=== PATIENT | male | born 1955 | race Caucasian/White ===

== ENCOUNTER 2020-02-06 12:54 | Inpatient (IN) | payer MEDICARE, OTHER ==
--- NOTE | 2020-02-06 13:18 | ED ---
General Adult HPI - General Chief complaint: Abdominal Pain Stated complaint: pancreatitis Time Seen by Provider: 02/06/20 12:55 Source: EMS Mode of arrival: EMS Limitations: altered mental status - History of Present Illness Initial comments: This is a 64-year-old male with a history of cerebral palsy, epilepsy who presents emergent department from [place] for pancreatitis and possible aspiration pneumonia. Per the caregiver the patient has been not acting himself over the last couple of days. He's been moaning more and not eating. She states that he's been putting food into his mouth however not swallowing. He has not been drinking as well. They've noticed decreased urine output. There was concern that the patient may have urinary retention so they did place a Martínez at that time however has still noticed decreased urine output. They stated his baseline he typically will look at you and somewhat interact however over the last couple of days he has not been as interactive as normal. He is nonverbal at baseline. He went to [place] where he had computed tomography scan of his head chest abdomen and pelvis. CT of the head showed right-sided encephalomalacia from previous stroke which resulted in left-sided weakness. CT of the chest showed possible aspiration pneumonia no PE. The patient was started on Zosyn at OSH. CT the abdomen showed concerns for pancreatitis and findings of cholecystectomy. When I asked the caregiver about previous surgery she was not aware of cholecystectomy. Labs were Significant for an elevated lipase. Rapid Covid was negative at outside facility. Otherwise is been no fevers at home. No nausea or vomiting. The caregiver did notice an episode of diarrhea. The patient does not have a history of drinking or gallstones according to the caregiver. The patient is not getting any of his medications today as well. There is no other acute complaints. - Related Data Allergies Allergy/AdvReac Type Severity Reaction Status Date / Time wool Allergy Rash/Hives Verified 02/06/20 13:17 Review of Systems ROS Statement: Those systems with pertinent positive or pertinent negative responses have been documented in the HPI. ROS Other: All systems not noted in ROS Statement are negative. Past Medical History Additional Past Medical History / Comment(s): Cerebral bypalsy, epilipsy Past Surgical History: Cholecystectomy Past Psychological History: Bipolar Smoking Status: Never smoker Past Alcohol Use History: None Reported Past Drug Use History: None Reported General Exam - General Exam Comments Initial Comments: Constitutional: The patient is sleeping. He is consistently moaning and has loud upper respiratory noises. Does not appear to be in any distress Head: Normocephalic atraumatic Eyes: no conjunctival injection No scleral icterus patient's pupils are 4 mm and reactive bilaterally Neck: No JVD Supple Heart: Regular rate rhythm normal S1-S2 no murmurs Lungs: Transmitted upper airway sounds No wheezing No rales, no evidence for respiratory distress Abdomen: Soft the abdomen is somewhat protuberant and seems to be tender generally because the patient does grunt loudly Extremities: Non edematous DP pulses intact Radial pulses intact Neuro: She is sleeping, patient has chronic contractures to the left upper and lower extremities. Chronic weakness patient is somnolent however seems to be in no distress. Ground in to palpation of his abdomen. Does not respond to voice Psych: Appropriate mood and affect Limitations: altered mental status Course Vital Signs 02/06/20 12:56 Temperature 95.6 F L Pulse Rate 56 L Respiratory 18 Rate Blood Pressure 104/61 O2 Sat by Pulse 98 Oximetry Medical Decision Making - Medical Decision Making Is a 64-year-old male who presents emergency department from [facility] for decreased oral intake, dehydration, pink her toys, and question of aspiration pneumonia. The patient on arrival had stable vital signs. He did seem somewhat sleepy however would open his eyes and groan to pain and stimulation. Blood work was reviewed from [facility] revealing a high lipase. CT of the abdomen showed pancreatic inflammation. Possible post cholecystectomy changes. CT of the chest revealed question low right-sided inf iltrate. The patient was given Zosyn at [facility]. I will continue him on this here. The patient was started on IV fluids. Labwork was repeated. Spoke with Dr. Chin and the patient will be admitted for gastroenterology consultation. The patient was Covid negative at [place]. Disposition Clinical Impression: Pancreatitis, Dehydration Disposition: ADMITTED IP TO THIS HOSP Condition: Fair Referrals: None,Stated [REFERRING] - 1-2 days Decision to Admit Reason: Admit from EC
[2020-02-06] MEDS: SODIUM CHLORIDE 0.9% 1,000 ML IV SCH ×2 (13:32→20:14)
[2020-02-06] MEDS ORDERED: NALOXONE 0.4 MG/ML 1 ML VIAL IV PRN (13:34)
[2020-02-06] MEDS ORDERED: ONDANSETRON 4 MG/2 ML VIAL IVP PRN (13:34)
[2020-02-06 13:54] LABS: Anisocytosis Slight; Basophils % (A) 0 %; Eosinophils # (A) 0.1 k/uL (0-0.7); Eosinophils % (A) 1 %; HCT 39.4 % (39.0-53.0); HGB 12.5 gm/dL (13.0-17.5); Lymphocytes # (A) 0.4 k/uL (1.0-4.8); Lymphocytes % (A) 3 %; MCH 28.6 pg (25.0-35.0); MCHC 31.8 g/dL (31.0-37.0); MCV 89.9 fL (80.0-100.0); Mean Platelet Volume 10.7; Monocytes # (A) 0.5 k/uL (0-1.0); Monocytes % (A) 5 %; Neutrophils # (A) 9.8 k/uL (1.3-7.7); Neutrophils % (A) 89 %; Platelet Count 143 k/uL (150-450); RBC 4.38 m/uL (4.30-5.90); RDW 17.1 % (11.5-15.5)
[2020-02-06 14:03] LABS: Poikilocytosis (M) Present; Target Cells Present
[2020-02-06 14:36] LABS: ALT 48 U/L (4-49); AST 57 U/L (17-59); African American GFR (CKD) >90 (>60 ml/min/1.73 sqM); Albumin 3.4 g/dL (3.5-5.0); Alkaline Phosphatase 76 U/L (38-126); Anion Gap 5 mmol/L; Blood Urea Nitrogen 17 mg/dL (9-20); Calcium 9.8 mg/dL (8.4-10.2); Carbon Dioxide 25 mmol/L (22-30); Chloride 107 mmol/L (98-107); Glucose 88 mg/dL (74-99); Magnesium 1.9 mg/dL (1.6-2.3); Non-African American GFR(CKD) >90 (>60 ml/min/1.73 sqM); Potassium 4.3 mmol/L (3.5-5.1); Sodium 137 mmol/L (137-145); Total Bilirubin 0.3 mg/dL (0.2-1.3); Total Protein 6.1 g/dL (6.3-8.2)
--- NOTE | 2020-02-06 15:14 | XR ---
EXAMINATION TYPE: XR chest 1V portable DATE OF EXAM: 02/06/2020 COMPARISON: NONE HISTORY: Altered mental status. TECHNIQUE: Single view FINDINGS: There is increased density right lung base consistent with airspace consolidation. Heart is deviated slightly to the right side. Left lung is fairly clear. There is no gross heart failure. IMPRESSION: Right lower lobe pneumonia and atelectasis. No gross heart failure. This is probably wors e than the CT scan today at 8:30 AM.
[2020-02-06 15:17] LABS: Lipase 5974 U/L (23-300)
--- NOTE | 2020-02-06 15:19 | US ---
EXAMINATION TYPE: US abdomen limited DATE OF EXAM: 02/06/2020 COMPARISON: CT CLINICAL HISTORY: Pancreatitis. EXAM MEASUREMENTS: Liver Length: 15.4 cm Gallbladder Wall: Surgically absent cm CBD: not seen Right Kidney: 9.5 x 4.5 x 5.4 cm Technically difficult study due to extensive midline bowel gas. Pancreas: Obscured by bowel gas Liver: limited visualization to intercostal window, visualized portions wnl Gallbladder: Surgically absent CBD: not seen Right Kidney: No hydronephrosis or masses seen IMPRESSION: There is cholecystectomy. Intrahepatic bile ducts are not dilated. Common bile duct is not seen. Ther e is no ascites. No focal liver defect.
[2020-02-06 17:32] LABS: Appearance,Urine Cloudy (Clear); Bacteria,Urine Rare /hpf; Bilirubin,Urine Negative (Negative); Blood,Urine Moderate (Negative); Color,Urine Yellow; Glucose,Urine (UA) Negative (Negative); Ketones,Urine Negative (Negative); Leukocyte Esterase,Urine Moderate (Negative); Mucus,Urine Occasional /hpf; Nitrite,Urine Negative (Negative); PH, Urine 5.5 (5.0-8.0); Protein,Urine 1+ (Negative); RBC,Urine 174 /hpf (0-5); Specific Gravity,Urine 1.032 (1.001-1.035); Squamous Epithelial Cell,Urine 4 /hpf (0-4); Urobilinogen,Urine <2.0 mg/dL (<2.0); WBC,Urine 47 /hpf (0-5)
[2020-02-06] MEDS: PIPERACILLIN-TAZOBACTAM 3.375 GM in SODIUM CHLORIDE 0.9% 100 ML IVPB SCH (17:41)
--- NOTE | 2020-02-06 23:00 | P.HPIM ---
History of Present Illness H&P Date: 02/06/20 Chief Complaint: Poor by mouth intake not eating well This is a 64-year-old male with a history of cerebral palsy, epilepsy who presents emergent department from [place] for pancreatitis and possible aspiration pneumonia. Per the caregiver the patient has been not acting himself over the last couple of days. He's been moaning more and not eating. Patient has been been putting food into his mouth however not swallowing. He has not been drinking as well. Caregivers have noticed decreased urine output. There was concern that the patient may have urinary retention so they did place a Martínez at that time however has still noticed decreased urine output. They st ated his baseline he typically will look at you and somewhat interact however over the last couple of days he has not been as interactive as normal. He is nonverbal at baseline. He went to [place] where he had computed tomography scan of his head chest abdomen and pelvis. CT of the head showed right-sided encephalomalacia from previous stroke which resulted in left-sided weakness. CT of the chest showed possible aspiration pneumonia no PE. The patient was started on Zosyn. CT the abdomen showed concerns for pancreatitis and findings of cholecystectomy. When I asked the caregiver about previous surgery she was not aware of cholecystectomy. Labs were Significant for an elevated lipase. Rapid Covid was negative at outside facility. Otherwise is been no fevers at home. No nausea or vomiting. The caregiver did notice an episode of diarrhea. The patient does not have a history of drinking or gallstones according to the caregiver. The patient is not getting any of his medications today as well. There is no other acute complaints. Review of Systems ROS unobtainable: due to mental status Past Medical History Past Medical History: Prostate Disorder Additional Past Medical History / Comment(s): Cerebral palsy, epilipsy, uti's, History of Any Multi-Drug Resistant Organisms: None Reported Past Surgical History: Cholecystectomy Past Anesthesia/Blood Transfusion Reactions: No Reported Reaction Smoking Status: Never smoker - Past Family History Father History Unknown: Yes Mother History Unknown: Yes Medications and Allergies Home Medications Medication Instructions Recorded Confirmed Type Aspirin EC [Ecotrin] 325 mg PO DAILY@0700 02/06/20 02/06/20 History Chlorhexidine Gluconate [Periogard] 15 ml PO BID 02/06/20 02/06/20 History FLUoxetine HCL [PROzac] 10 mg PO DAILY@0700 02/06/20 02/06/20 History Fenofibrate,Micronized 67 mg PO DAILY@1600 02/06/20 02/06/20 History [Fenofibrate] Finasteride [Proscar] 5 mg PO DAILY@0700 02/06/20 02/06/20 History Ketoconazole [Nizoral A-D] 5 ml TOPICAL DAILY 02/06/20 02/06/20 History LORazepam [Ativan] 0.5 mg PO BID 02/06/20 02/06/20 History LORazepam [Ativan] 0.5 mg PO DAILY PRN 02/06/20 02/06/20 History Multivitamins, Thera [Multivitamin 1 tab PO DAILY@0700 02/06/20 02/06/20 History (formulary)] OLANZapine 20 mg PO HS@2100 02/06/20 02/06/20 History OXcarbazepine 600 mg PO DAILY@0700 02/06/20 02/06/20 History OXcarbazepine [Trileptal] 150 mg PO HS@2100 02/06/20 02/06/20 History OXcarbazepine [Trileptal] 300 mg PO HS@2100 02/06/20 02/06/20 History Polyethylene Glycol 3350 [Miralax] 17 gm PO DAILY@1600 PRN 02/06/20 02/06/20 History Tamsulosin HCl [Flomax] 0.4 mg PO DAILY@1600 02/06/20 02/06/20 History Allergies Allergy/AdvReac Type Severity Reaction Status Date / Time wool Allergy Rash/Hives Verified 02/06/20 13:46 Physical Exam Vitals: Vital Signs Temp Pulse Pulse Resp BP BP Pulse Ox 02/06/20 16:34 98.4 F 58 L 19 135/73 96 02/06/20 15:15 95.6 F L 54 L 18 110/70 95 02/06/20 15:12 54 L 18 110/70 95 02/06/20 13:41 54 L 18 112/68 95 02/06/20 12:56 95.6 F L 56 L 18 104/61 98 Intake and Output 02/06/20 02/06/20 02/06/20 06:59 14:59 22:59 Output Total 325 Balance -325 Output: Urine 325 Uretheral (Martínez) 75 Other: Weight 79.379 kg 79.379 kg - Constitutional General appearance: average body habitus, disheveled - EENT Ears: bilateral: normal - Neck Neck: normal ROM Carotids: bilateral: upstroke normal - Respiratory Respiratory: bilateral: diminished - Cardiovascular Rhythm: regular Heart sounds: normal: S1, S2 - Gastrointestinal General gastrointestinal: decreased bowel sounds - Neurologic Nonverbal and noncommunicative Results CBC & Chem 7: 02/06/20 13:40 02/06/20 13:59 Labs: Abnormal Lab Results - Last 24 Hours (Table) 02/06/20 02/06/20 02/06/20 Range/Units 13:40 13:59 17:00 WBC 11.0 H (3.8-10.6) k/uL Hgb 12.5 L (13.0-17.5) gm/dL RDW 17.1 H (11.5-15.5) % Plt Count 143 L (150-450) k/uL Neutrophils # 9.8 H (1.3-7.7) k/uL Lymphocytes # 0.4 L (1.0-4.8) k/uL Total Protein 6.1 L (6.3-8.2) g/dL Albumin 3.4 L (3.5-5.0) g/dL Lipase 5974 H (23-300) U/L Urine Protein 1+ H (Negative) Urine Blood Moderate H (Negative) Ur Leukocyte Esterase Moderate H (Negative) Urine RBC 174 H (0-5) /hpf Urine WBC 47 H (0-5) /hpf Urine Bacteria Rare H (None) /hpf Urine Mucus Occasional H (None) /hpf Microbiology - Last 24 Hours (Table) 02/06/20 17:00 Urine Culture - Preliminary Urine,Catheterized Chest x-ray: report reviewed (Right lower lobe pneumonia, computed tomography scan reports of chest abdominal and pelvis and head reviewed done at [facility]), image reviewed Thrombosis Risk Factor Assmnt - Choose All That Apply Any of the Below Risk Factors Present?: Yes Each Factor Represents 1 point: Medical pt on bed rest, Obesity (BMI >25), Serious lung disease incl. pneumonia (< 1month), Swollen legs (current) Each Risk Factor Represents 2 Points: Age 61-74 years Thrombosis Risk Factor Assessment Total Risk Factor Score: 6 Thrombosis Risk Factor Assessment Level: High Risk Assessment and Plan Assessment: Acute pancreatitis Right-sided aspiration pneumonia Advanced cerebral palsy History of epilepsy Plan: Gentle rehydration Repeat labs tomorrow GI consult Patient cannot take his pills so will make him nothing by mouth for now IV Zosyn Time with Patient: Greater than 30
[2020-02-07] MEDS: SODIUM CHLORIDE 0.9% 1,000 ML IV SCH ×4 (00:27→16:38)
[2020-02-07] MEDS: PIPERACILLIN-TAZOBACTAM 3.375 GM in SODIUM CHLORIDE 0.9% 100 ML IVPB SCH ×4 (00:27→23:03)
[2020-02-07 08:14] LABS: Anisocytosis Slight; Basophils % (A) 0 %; Eosinophils # (A) 0.1 k/uL (0-0.7); Eosinophils % (A) 1 %; HCT 39.1 % (39.0-53.0); HGB 12.3 gm/dL (13.0-17.5); Hypochromasia Slight; Lymphocytes # (A) 0.7 k/uL (1.0-4.8); Lymphocytes % (A) 12 %; MCH 28.8 pg (25.0-35.0); MCHC 31.4 g/dL (31.0-37.0); MCV 91.7 fL (80.0-100.0); Mean Platelet Volume 9.9; Monocytes # (A) 0.4 k/uL (0-1.0); Monocytes % (A) 7 %; Neutrophils # (A) 4.7 k/uL (1.3-7.7); Neutrophils % (A) 77 %; Platelet Count 141 k/uL (150-450); RBC 4.27 m/uL (4.30-5.90); WBC 6.1 k/uL (3.8-10.6)
[2020-02-07 12:13] LABS: African American GFR (CKD) 115.6 (60.0-200.0); Anion Gap 4.3 mmol/L (4.00-12.00); Calcium 9.3 mg/dL (8.7-10.3); Carbon Dioxide 23.7 mmol/L (21.6-31.8); Non-African American GFR(CKD) 99.7 (60.0-200.0); Potassium 4.5 mmol/L (3.5-5.5)
--- NOTE | 2020-02-07 13:32 | P.PN ---
Subjective Progress Note Date: 02/07/20 Principal diagnosis: Acute pancreatitis Right-sided aspiration pneumonia Advanced cerebral palsy History of epilepsy 02/07/2020, patient seen eval examined during the rounds labs reviewed medications reviewed, respiratory status remains stable on supplemental oxygen saturation is 96%, patient remains afebrile, amylase lipase is noted to be down 899 and 466, GI consultation pending, she remains nothing by mouth, This is a 64-year-old male with a history of cerebral palsy, epilepsy who presents emergent department from [place] for pancreatitis and possible aspiration pneumonia. Per the caregiver the patient has been not acting himself over the last couple of days. He's been moaning more and not eating. Patient has been been putting food into his mouth however not swallowing. He has not been drinking as well. Caregivers have noticed decreased urine output. There was concern that the patient may have urinary retention so they did place a Martínez at that time however has still noticed decreased urine output. They stated his baseline he typically will look at you and somewhat interact however over the last couple of days he has not been as interactive as normal. He is nonverbal at baseline. He went to [place] where he had computed tomography scan of his head chest abdomen and pelvis. CT of the head showed right-sided encephalomalacia from previous stroke which resulted in left-sided weakness. CT of the chest showed possible aspiration pneumonia no PE. The patient was started on Zosyn. CT the abdomen showed concerns for pancreatitis and findings of cholecystectomy. When I asked the caregiver about previous surgery she was not aware of cholecystectomy. Labs were Significant for an elevated lipase. Rapid Covid was negative at outside facility. Otherwise is been no fevers at home. No nausea or vomiting. The caregiver did notice an episode of diarrhea. The patient does not have a history of drinking or gallstones according to the caregiver. The patient is not getting any of his medications today as well. There is no other acute complaints. Objective - Vital Signs Vital signs: Vital Signs Temp 96.2 F L 02/07/20 08:00 Pulse 81 02/07/20 08:00 Resp 24 02/07/20 08:00 BP 152/84 02/07/20 08:00 Pulse Ox 96 02/07/20 08:00 Intake & Output 02/06/20 02/07/20 02/07/20 18:59 06:59 18:59 Output Total 325 350 610 Balance -325 -350 -610 Weight 79.379 kg Output: Urine 325 350 610 Uretheral (Martínez) 75 Other: Voiding Method Indwelling Catheter - Exam - Constitutional General appearance: average body habitus, disheveled - EENT Ears: bilateral: normal - Neck Neck: normal ROM Carotids: bilateral: upstroke normal - Respiratory Respiratory: bilateral: diminished - Cardiovascular Rhythm: regular Heart sounds: normal: S1, S2 - Gastrointestinal General gastrointestinal: decreased bowel sounds - Neurologic Nonverbal and noncommunicative - Labs CBC & Chem 7: 02/07/20 07:01 02/07/20 07:01 Labs: Abnormal Lab Results - Last 24 Hours (Table) 02/06/20 02/06/20 02/06/20 Range/Units 13:40 13:59 17:00 WBC 11.0 H (3.8-10.6) k/uL RBC (4.30-5.90) m/uL Hgb 12.5 L (13.0-17.5) gm/dL RDW 17.1 H (11.5-15.5) % Plt Count 143 L (150-450) k/uL Neutrophils # 9.8 H (1.3-7.7) k/uL Lymphocytes # 0.4 L (1.0-4.8) k/uL Chloride (96-109) mmol/L Glucose (70-110) mg/dL Total Protein 6.1 L (6.3-8.2) g/dL Albumin 3.4 L (3.5-5.0) g/dL Amylase (23-121) U/L Lipase 5974 H (23-300) U/L Urine Protein 1+ H (Negative) Urine Blood Moderate H (Negative) Ur Leukocyte Esterase Moderate H (Negative) Urine RBC 174 H (0-5) /hpf Urine WBC 47 H (0-5) /hpf Urine Bacteria Rare H (None) /hpf Urine Mucus Occasional H (None) /hpf 02/07/20 02/07/20 Range/Units 07:01 07:01 WBC (3.8-10.6) k/uL RBC 4.27 L (4.30-5.90) m/uL Hgb 12.3 L (13.0-17.5) gm/dL RDW 17.0 H (11.5-15.5) % Plt Count 141 L (150-450) k/uL Neutrophils # (1.3-7.7) k/uL Lymphocytes # 0.7 L (1.0-4.8) k/uL Chloride 111 H (96-109) mmol/L Glucose 52 L (70-110) mg/dL Total Protein (6.3-8.2) g/dL Albumin (3.5-5.0) g/dL Amylase 899 H* (23-121) U/L Lipase 466 H (23-300) U/L Urine Protein (Negative) Urine Blood (Negative) Ur Leukocyte Esterase (Negative) Urine RBC (0-5) /hpf Urine WBC (0-5) /hpf Urine Bacteria (None) /hpf Urine Mucus (None) /hpf Microbiology - Last 24 Hours (Table) 02/06/20 17:00 Urine Culture - Preliminary Urine,Catheterized Assessment and Plan Assessment: Acute pancreatitis Right-sided aspiration pneumonia Advanced cerebral palsy History of epilepsy Plan: Gentle rehydration Repeat labs tomorrow GI consult Patient cannot take his pills so will make him nothing by mouth for now IV Zosyn Time with Patient: Greater than 30
[2020-02-07 17:30] LABS: Glucose,Whole Blood 47 mg/dL (75-99)
[2020-02-07] MEDS ORDERED: DEXTROSE 50% SYRINGE 50 ML IVP ONE (17:30)
[2020-02-07 17:52] LABS: Glucose,Whole Blood 139 mg/dL (75-99)
[2020-02-07] MEDS: DEXTROSE 5%-0.9% NACL 1,000 ML IV SCH (18:11)
--- NOTE | 2020-02-07 20:22 | CONS ---
CONSULTATION DATE OF DICTATION: 02/07/2020 REASON FOR CONSULTATION: Acute pancreatitis. HISTORY OF PRESENT ILLNESS: The patient is a 64-year-old white male with history of cerebral palsy and epilepsy who was transferred from [facility], where he presented with acute pancreatitis and possible aspiration pneumonia. Most of the history was obtained from the patient's chart and the nursing staff, as the patient is somewhat nonverbal. Apparently he was not eating well at the long-term and his oral intake has been decreased. He was not obviously complaining of any abdominal symptoms, but because of this change in significant baseline condition, he was taken to [facility] and subsequently transferred here for further management. At the time of admission to the hospital, his lipase was elevated consistent with acute pancreatitis. He did have a CT of the abdomen that showed findings in the pancreas consistent with acute pancreatitis. CT of the head also showed right-sided encephalomalacia. This morning, as per the nursing staff, the patient is not complaining. He is kind of sleepy most of the day. There were no obvious episodes of nausea, vomiting. No fever, chills. PAST MEDICAL HISTORY: Significant for cerebral palsy, history of epilepsy, recurrent UTIs, prostate disorder, chronic constipation. PAST SURGICAL HISTORY: Cholecystectomy. MEDICATIONS: Medications in the long-term include Ecotrin, Prozac, fenofibrate, Proscar, Nizoral, Ativan, multivitamin, Trileptal, olanzapine, MiraLAX, Flomax. ALLERGIES: NONE. SOCIAL HISTORY: No smoking. No alcohol use. FAMILY HISTORY: Family history could not be obtained. REVIEW OF SYSTEMS: Review of systems could not be obtained, as patient is very sleepy and nonverbal. PHYSICAL EXAMINATION: He appears comfortable. No apparent distress. Vital signs appear to be stable. Blood pressure is 146/84, pulse rate 81, temperature 96.2. HEENT examination unremarkable. Conjunctivae pink. Sclerae anicteric. Oral cavity no lesions. NECK: No JVD or lymph node enlargement. CHEST: Clear to auscultation. ABDOMEN: Slightly distended, but it was non-tender. No organomegaly. EXTREMITIES: No pedal edema. NEUROLOGIC: Cannot be assessed, as patient was very sleepy. LABS: Labs done at the time of admission to the hospital showed WBC was 11, hemoglobin 12.5, platelets 143. Lipase was 5974. Today lipase is down to 466. ALT, AST, T-bilirubin and alkaline phosphatase are within normal limits. Labs from today show WBC of 6.1, hemoglobin 12.3, and platelets are 141. IMPRESSION: 1. This is a patient with cerebral palsy and seizure disorder, admitted to the hospital when he was transferred from the long-term with not feeling well with decreased appetite, and labs showed elevated lipase consistent with acute pancreatitis. CT of the abdomen and pelvis done in the emergency room at [facility] apparently did show changes in the pancreas consistent with acute pancreatitis. Normal serum transaminases make it unlikely we are dealing with any biliary pancreatitis. Etiology of pancreatitis at this time remains unclear. No history of alcohol use. 2. Altered mental status in this patient with history of cerebral palsy, but baseline mental status apparently is that patient is quite active and awake. He did have a CT of the head done at [facility] that showed changes consistent with encephalomalacia/prior history of stroke. 3. History of cerebral palsy. 4. Chronic constipation. 5. History of seizure disorder. RECOMMENDATIONS: 1. Monitor lipase closely. 2. Will start him on clear liquid diet once his overall mental status improves. 3. Continue with aggressive IV hydration. 4. Repeat labs in the morning. 5. Obtain fasting serum triglycerides and IgG4 levels. 6. Will follow with you closely. Thank you for this consultation. MMODL / IJN: [id number] /
[2020-02-08 00:07] LABS: Glucose,Whole Blood 70 mg/dL (75-99)
[2020-02-08 05:15] LABS: Glucose,Whole Blood 81 mg/dL (75-99)
[2020-02-08] MEDS: DEXTROSE 5%-0.9% NACL 1,000 ML IV SCH ×2 (07:11→20:15)
[2020-02-08] MEDS: PIPERACILLIN-TAZOBACTAM 3.375 GM in SODIUM CHLORIDE 0.9% 100 ML IVPB SCH ×3 (07:34→23:19)
[2020-02-08 11:19] LABS: Cholesterol 192 mg/dL (<200); HDL Cholesterol 109 mg/dL (40-60); LDL Cholesterol,Calculated 73 mg/dL (0-99); Triglycerides 51 mg/dL (<150)
--- NOTE | 2020-02-08 13:03 | P.PN ---
Subjective Progress Note Date: 02/08/20 Principal diagnosis: Acute pancreatitis Right-sided aspiration pneumonia Advanced cerebral palsy History of epilepsy 02/08/2020, patient seen and evaluated examined, mental status remains marginal, we'll consult neurology due to history of seizures and anti-seizure medications, patient is not ready for discharge abdominal pain however and the pancreatic enzyme continued to improve O follow closely 02/07/2020, patient seen eval examined during the rounds labs reviewed medi cations reviewed, respiratory status remains stable on supplemental oxygen saturation is 96%, patient remains afebrile, amylase lipase is noted to be down 899 and 466, GI consultation pending, she remains nothing by mouth, This is a 64-year-old male with a history of cerebral palsy, epilepsy who pr esents emergent department from [facility] for pancreatitis and possible aspiration pneumonia. Per the caregiver the patient has been not acting himself over the last couple of days. He's been moaning more and not eating. Patient has been been putting food into his mouth however not swallowing. He has not been drinking as well. Caregivers have noticed decreased urine output. There was concern that the patient may have urinary retention so they did place a Martínez at that time however has still noticed decreased urine output. They stated his baseline he typically will look at you and somewhat interact however over the last couple of days he has not been as interactive as normal. He is nonverbal at baseline. He went to [facility] where he had computed tomography scan of his head chest abdomen and pelvis. CT of the head showed right-sided encephalomalacia from previous stroke which resulted in left-sided weakness. CT of the chest showed possible aspiration pneumonia no PE. The patient was started on Zosyn. CT the abdomen showed concerns for pancreatitis and findings of cho lecystectomy. When I asked the caregiver about previous surgery she was not aware of cholecystectomy. Labs were Significant for an elevated lipase. Rapid Covid was negative at outside facility. Otherwise is been no fevers at home. No nausea or vomiting. The caregiver did notice an episode of diarrhea. The patient does not have a history of drinking or gallstones according to the caregiver. The patient is not getting any of his medications today as well. There is no other acute complaints. Objective - Vital Signs Vital signs: Vital Signs Temp 98.5 F 02/08/20 07:59 Pulse 72 02/08/20 07:59 Resp 30 H 02/08/20 07:59 BP 137/87 02/08/20 07:59 Pulse Ox 95 02/08/20 07:59 Intake & Output 02/07/20 02/08/20 02/08/20 18:59 06:59 18:59 Intake Total 2100 Output Total 610 700 500 Balance 1490 -700 -500 Intake: Intake, IV Titration 2100 Amount Piperacillin-Tazobactam 3 100 .375 gm In Sodium Chloride 0.9% 100 ml @ 25 mls/hr IVPB Q8HR JABARI Rx# :[id number] Sodium Chloride 0.9% 1, 2000 000 ml @ 200 mls/hr IV . Q5H JABARI Rx#:[id number] Output: Urine 610 700 500 Other: Voiding Method Indwelling Catheter Indwelling Catheter - Exam - Constitutional General appearance: average body habitus, disheveled - EENT Ears: bilateral: normal - Neck Neck: normal ROM Carotids: bilateral: upstroke normal - Respiratory Respiratory: bilateral: diminished - Cardiovascular Rhythm: regular Heart sounds: normal: S1, S2 - Gastrointestinal General gastrointestinal: decreased bowel sounds - Neurologic Nonverbal and noncommunicative - Labs CBC & Chem 7: 02/07/20 07:01 02/07/20 07:01 Labs: Abnormal Lab Results - Last 24 Hours (Table) 02/07/20 02/07/20 02/07/20 Range/Units 07:01 17:29 17:51 POC Glucose (mg/dL) 47 L 139 H (75-99) mg/dL HDL Cholesterol (40-60) mg/dL Amylase 899 H* (23-121) U/L 02/08/20 02/08/20 Range/Units 00:06 10:44 POC Glucose (mg/dL) 70 L (75-99) mg/dL HDL Cholesterol 109 H (40-60) mg/dL Amylase (23-121) U/L Microbiology - Last 24 Hours (Table) 02/06/20 17:00 Urine Culture - Final Urine,Catheterized Assessment and Plan Assessment: Altered mental status Seizure disorder Acute pancreatitis Right-sided aspiration pneumonia Advanced cerebral palsy History of epilepsy Plan: Consult neurology We'll check with pharmacy about conversion of anti-seizure medicine Gentle rehydration Repeat labs tomorrow GI consult recommendation noted appreciated Patient cannot take his pills so will make him nothing by mouth for now IV Zosyn Time with Patient: Greater than 30
--- NOTE | 2020-02-08 13:33 | P.PN ---
Subjective Progress Note Date: 02/08/20 Principal diagnosis: Pancreatitis Mrs. 64-year-old white female with a history of cerebral palsy and epilepsy who was transferred from [facility] he presented with acute pancreatitis and possible aspiration pneumonia. He was seen and evaluated lying in bed. He remains very fatigued. His nurse states that he has been lethargic. He has not been taking any oral pills or liquids. The nurse is unsure of his last bowel movement. He does have some abdominal distention. Upon palpation of the upper abdomen the patient did moan, however otherwise is pretty much nonverbal. Triglycerides 51, repeat amylase 373, lipase 781. Objective - Vital Signs Vital signs: Vital Signs Temp 98.5 F 02/08/20 07:59 Pulse 72 02/08/20 07:59 Resp 30 H 02/08/20 07:59 BP 137/87 02/08/20 07:59 Pulse Ox 95 02/08/20 07:59 Intake & Output 02/07/20 02/08/20 02/08/20 18:59 06:59 18:59 Intake Total 2100 Output Total 610 700 Balance 1490 -700 Intake: Intake, IV Titration 2100 Amount Piperacillin-Tazobactam 3 100 .375 gm In Sodium Chloride 0.9% 100 ml @ 25 mls/hr IVPB Q8HR JABARI Rx# :[id number] Sodium Chloride 0.9% 1, 2000 000 ml @ 200 mls/hr IV . Q5H JABARI Rx#:[id number] Output: Urine 610 700 Other: Voiding Method Indwelling Catheter Indwelling Catheter - Exam General appearance: The patient is lethargic. Nonverbal, he appears to be in no acute distress. HET: Head is normocephalic and atraumatic. Conjunctiva pink. Sclera and icteric. Neck: Supple without lymphadenopathy. Abdomen: Soft, epigastric and right upper quadrant tenderness, mildly distended. No guarding or rigidity. Extremities: Normal skin color and turgor. No pedal edema Neurological: He should has history of cerebral palsy and epilepsy. He is mainly nonverbal. Sleeping but arousable. - Labs CBC & Chem 7: 02/07/20 07:01 02/07/20 07:01 Labs: Abnormal Lab Results - Last 24 Hours (Table) 02/07/20 02/07/20 02/07/20 Range/Units 07:01 17:29 17:51 Chloride 111 H (96-109) mmol/L Glucose 52 L (70-110) mg/dL POC Glucose (mg/dL) 47 L 139 H (75-99) mg/dL Amylase 899 H* (23-121) U/L Lipase 466 H (14-60) U/L 02/08/20 Range/Units 00:06 Chloride (96-109) mmol/L Glucose (70-110) mg/dL POC Glucose (mg/dL) 70 L (75-99) mg/dL Amylase (23-121) U/L Lipase (14-60) U/L Microbiology - Last 24 Hours (Table) 02/06/20 17:00 Urine Culture - Final Urine,Catheterized Assessment and Plan (1) Pancreatitis Narrative/Plan: This patient has a history of cerebral palsy and seizure disorder who was admitted to the hospital in [place] from his alf with not feeling well with decreased appetite, and lap showing elevated lipase consistent with acute pancreatitis. CT of the abdomen and pelvis from [facility] showed changes in the pancreas consistent with acute pancreatitis. He's had normal serum transaminases which make it unlikely were dealing with a biliary pancreatitis. Etiology of pancreatitis at this time remains unclear. Has no prior history of alcohol use. Triglycerides and IgG4 ordered and pending. Current Visit: Yes Status: Acute Code(s): K85.90 - ACUTE PANCREATITIS WITHOUT NECROSIS OR INFECTION, UNSP SNOMED Code(s): 43717283 (2) Altered mental status Narrative/Plan: Altered mental status and the patient with a history of cerebral palsy, but baseline mental status this patient apparently is quite active and awake. He did undergo a CT of the head at [facility] that showed changes consistent with encephalomalacia and prior history of stroke. Neurology is following. Current Visit: Yes Status: Acute Code(s): R41.82 - ALTERED MENTAL STATUS, UNSPECIFIED SNOMED Code(s): 461925134 (3) Chronic constipation Current Visit: Yes Status: Acute Code(s): K59.09 - OTHER CONSTIPATION SNOMED Code(s): 821912992 (4) Cerebral palsy Current Visit: Yes Status: Acute Code(s): G80.9 - CEREBRAL PALSY, UNSPECIFIED SNOMED Code(s): 304278889 Plan: 1. Supportive care 2. Monitor lipase daily 3. Fasting serum triglyceride and IgG4 ordered 4. May advance to clear liquid diet once his overall mental status improves 5. We will follow with you closely Dr. Carolina Lovelace I agree with the dictator's note, documented as a scribe by Liliya Miller.
[2020-02-08 13:52] LABS: Glucose,Whole Blood 92 mg/dL (75-99)
[2020-02-08 14:02] LABS: Lipase 781 U/L (23-300)
[2020-02-08 14:14] LABS: Amylase 373 U/L (30-110)
--- NOTE | 2020-02-08 16:38 | P.CNNES ---
History of Present Illness Consult date: 02/08/20 Requesting physician: Hector Chin Reason for Consult: lethargy History of Present Illness: This is a 64-year-old gentleman with medical history of cerebral palsy, epilepsy who presented from the [facility] on the 02/06/2020 for pancreatitis and possible aspiration pneumonia. History obtained from medical records since the patient on is unable to provide history. Per the caregiver the patient is a not been acting himself over the last couple days prior to presentation. He has been less interactive than his baseline. He has been morning and not eating. Also there is a decrease in the urine output that. Patient has the urinary retention. Also the patient has been having dinner diarrhea according to the caregiver. Patient had the CT of the head which showed the right sided encephalomalacia from previous stroke which resulted left-sided weakness. Patient also had CT of the chest which showed possible aspiration pneumonia but no pulmonary embolism. Therefore the patient was started on Zosyn at the outside the hospital facility. CT of the abdomen shows concern for pancreatitis and the findings of cholecy stectomy. Rapid Covid testing at outside facility was negative. Because the patient has lethargic and difficulty with swallowing as a result the Trileptal was switched to Keppra 500 mg twice a day IV. Patient baseline per medical record is that the patient the looks at you and somewhat interacts. His baseline is nonverbal. Maybe he'll say one word time to time. According to the nurse the construction administrator at the extended the nursing facility stated that the patient has not had any seizure for 6 years. No new whatever seizures the patient has. Regarding the seizure medication the patient is on the Trileptal 600 in the morning and 450 at nighttime. Workup in our facility consisted of: Initial vital signs is blood pressure of 104/61, heart rate of 56, respiratory of 18, temperature of 95.6 Fahrenheit exactly and the pulse ox of 98% room air. Chest x-ray is reported as right lower lobe pneumonia and atelectasis at. No gross heart failure. This probably worse than that computed tomography scan today at 8:30 AM. Ultrasound the abdomen is reported as there is cholecystectomy. Intrahepatic bile duct are not dilated. Common bile duct is not seen. There is no ascites. No focal liver deficit. Visual blood cell is 11.0 and the repeated is 6.1. Patient amylase is 899 is elevated and a normal 23-121. Lipase is 5974 and the normal is 23 - 300. Urinalysis appears cloudy, nitrate was negative, leukocyte esterase was moderate, urine 1 blood cell is 47, urine bacteria was rare. R facility the patient was started on Zosyn and is on every 8 hours. Review of Systems Review of system is limited with apparent positive and negative as per HPI. Past Medical History Past Medical History: Prostate Disorder Additional Past Medical History / Comment(s): Cerebral palsy, epilipsy, uti's, History of Any Multi-Drug Resistant Organisms: None Reported Past Surgical History: Cholecystectomy Past Anesthesia/Blood Transfusion Reactions: No Reported Reaction Smoking Status: Never smoker - Past Family History Father History Unknown: Yes Mother History Unknown: Yes Medications and Allergies Home Medications Medication Instructions Recorded Confirmed Type Aspirin EC [Ecotrin] 325 mg PO DAILY@0700 02/06/20 02/06/20 History Chlorhexidine Gluconate [Periogard] 15 ml PO BID 02/06/20 02/06/20 History FLUoxetine HCL [PROzac] 10 mg PO DAILY@0700 02/06/20 02/06/20 History Fenofibrate,Micronized 67 mg PO DAILY@1600 02/06/20 02/06/20 History [Fenofibrate] Finasteride [Proscar] 5 mg PO DAILY@0700 02/06/20 02/06/20 History Ketoconazole [Nizoral A-D] 5 ml TOPICAL DAILY 02/06/20 02/06/20 History LORazepam [Ativan] 0.5 mg PO BID 02/06/20 02/06/20 History LORazepam [Ativan] 0.5 mg PO DAILY PRN 02/06/20 02/06/20 History Multivitamins, Thera [Multivitamin 1 tab PO DAILY@0700 02/06/20 02/06/20 History (formulary)] OLANZapine 20 mg PO HS@209902/06/20 02/06/20 History OXcarbazepine 600 mg PO DAILY@0700 02/06/20 02/06/20 History OXcarbazepine [Trileptal] 150 mg PO HS@209902/06/20 02/06/20 History OXcarbazepine [Trileptal] 300 mg PO HS@209902/06/20 02/06/20 History Polyethylene Glycol 3350 [Miralax] 17 gm PO DAILY@1600 PRN 02/06/20 02/06/20 History Tamsulosin HCl [Flomax] 0.4 mg PO DAILY@1600 02/06/20 02/06/20 History Allergies Allergy/AdvReac Type Severity Reaction Status Date / Time wool Allergy Rash/Hives Verified 02/06/20 13:46 Physical Examination - Vital Signs Vital Signs: Vital Signs Temp Pulse Resp BP BP Pulse Ox 02/08/20 14:00 97.6 F 64 26 H 120/75 94 L 02/08/20 07:59 98.5 F 72 30 H 137/87 95 02/08/20 02:14 97.3 F L 80 132/69 95 02/07/20 18:53 97.5 F L 80 93/60 95 Intake and Output 02/08/20 02/08/20 02/08/20 06:59 14:59 22:59 Output Total 700 500 Balance -700 -500 Output: Urine 700 500 Other: Voiding Method Indwelling Catheter GENERAL: The patient is lying in bed and seems minimally restless. CHEST: The heart rate is regular rate rhythm. No murmurs to auscultation. LUNG: Clear to auscultation bilaterally no wheezing noted throughout. Not labored breathing. ABDOMEN/GI: Bowel sounds present in all 4 quadrants. No tenderness to palpation throughout. INTEGUMENTARY: The patient is warm to touch. NEUROLOGICAL: Higher mental function: The patient is drowsy but briefly open his eyes once to painful stimuli. He non-verbal (chronic). Cranial nerves: I could not assess the pupil size since the patient was resistant to open his eyes. I cannot assess extraocular movement because of the patient resistant to open his eyes even tried to manually open by the patient Resists Opening His Eyes. However I don't feel the Patient Had Gaze Deviation but Again It Was Hard to Assess. Visual mahan were unable to be obtained. I felt maybe he had the left nasolabial flattening. Facial sensation and most of the cranial nerves could not be assessed because of his condition. Motor: Gait is a is unable to obtain. The strength is is able to lift bilateral upper extremity above gravity right more than the left. As well as that he is able to lift the right lower extremity more than the left lower extremity. Patient had increased tone predominantly over left upper and lower extremity. He had minimal increased tone over the right upper and lower extremity mostly lower extremity. 5 Cerebellum: Not assessed because his condition. Sensation: Not assessed because of his condition Reflexes (right/left): Patient had that 3+ over the left upper and lower extremities. While 2+ over the right side. Plantars are upgoing bilaterally. Results - Laboratory Findings CBC and BMP: 02/07/20 07:01 02/07/20 07:01 Abnormal Lab Findings: Abnormal Labs 02/06/20 02/06/20 02/06/20 13:40 13:59 17:00 WBC 11.0 H RBC Hgb 12.5 L RDW 17.1 H Plt Count 143 L Neutrophils # 9.8 H Lymphocytes # 0.4 L Chloride Glucose POC Glucose (mg/dL) Total Protein 6.1 L Albumin 3.4 L HDL Cholesterol Amylase Lipase 5974 H Urine Protein 1+ H Urine Blood Moderate H Ur Leukocyte Esterase Moderate H Urine RBC 174 H Urine WBC 47 H Urine Bacteria Rare H Urine Mucus Occasional H 02/07/20 02/07/20 02/07/20 07:01 07:01 17:29 WBC RBC 4.27 L Hgb 12.3 L RDW 17.0 H Plt Count 141 L Neutrophils # Lymphocytes # 0.7 L Chloride 111 H Glucose 52 L POC Glucose (mg/dL) 47 L Total Protein Albumin HDL Cholesterol Amylase 899 H* Lipase 466 H Urine Protein Urine Blood Ur Leukocyte Esterase Urine RBC Urine WBC Urine Bacteria Urine Mucus 02/07/20 02/08/20 02/08/20 17:51 00:06 08:12 WBC RBC Hgb RDW Plt Count Neutrophils # Lymphocytes # Chloride Glucose POC Glucose (mg/dL) 139 H 70 L Total Protein Albumin HDL Cholesterol Amylase 373 H* Lipase 781 H Urine Protein Urine Blood Ur Leukocyte Esterase Urine RBC Urine WBC Urine Bacteria Urine Mucus 02/08/20 10:44 WBC RBC Hgb RDW Plt Count Neutrophils # Lymphocytes # Chloride Glucose POC Glucose (mg/dL) Total Protein Albumin HDL Cholesterol 109 H Amylase Lipase Urine Protein Urine Blood Ur Leukocyte Esterase Urine RBC Urine WBC Urine Bacteria Urine Mucus Assessment and Plan Assessment: This is a 64-year-old gentleman with medical history of cerebral palsy, epilepsy who presented from the [facility] on the 02/06/2020 for pancreatitis and possible aspiration pneumonia. Patient's altered mental status/lethargy is due to underlying infection from aspiration pneumonia and pancreatitis History of Epilepsy History of Cerebral palsy Right hemisphere encephalomalacia from the previous stroke with residual left- sided weakness. Aspiration pneumonia Acute Pancreatitis It seems the patient also has urinary tract infection Plan: Patient is on the Trileptal 600 mg in the morning and 450 at night and that's his home dose for the seizure. We will switch to 500 mg 1 twice a day IV. I will increase the Keppra to 750 one twice a day and wants the patient is able to swallow weak in the reset his Trileptal and discontinue the Keppra. I ordered a CT of the head and the routine EEG. If the EEG does not show a seizure or not modify his seizure medication. Regarding the patient's old stroke patient needs continue aspirin if he can get the aspirin through mouth we can do rectal for now and then will resume the aspirin 325 daily. Also recommend Lipitor 20 mg daily if it is safe to do so because especially with a pancreatitis. Regarding the management of aspiration pneumonia and the pancreatitis we'll defer the management to the primary team. Also for the possible urinary tract infection will defer the management to the primary team. Upon discharge the patient is to follow up with an outpatient neurologist within 2 weeks. The Plan was discussed with the patient's nurse. Thank you for the consultation. Prieto Peguero M.D. Neuro-hospitalist Time with Patient: Greater than 30
[2020-02-08 17:15] LABS: Glucose,Whole Blood 87 mg/dL (75-99)
--- NOTE | 2020-02-08 19:08 | CT ---
EXAMINATION TYPE: CT brain wo con DATE OF EXAM: 02/08/2020 COMPARISON: 02/06/2020 HISTORY: Patient poor hiatorian. CT DLP: 1232.4 mGycm Automated exposure control for dose reduction was used. There is markedly severe hydrocephalus. There is widening of the subdural space over the right cerebr al hemisphere with very little right side brain parenchyma. The cerebellum is intact. No significant cerebellar atrophy. The left cerebral hemisphere shows no acute abnormality. There is markedly enlarg ed left lateral ventricle. IMPRESSION: Severe hydrocephalus. Right cerebral hemisphere severe cortical thinning. Brain unchanged compared to recent exam.
[2020-02-08] MEDS: levETIRAcetam IV 750 MG in SODIUM CHLORIDE 0.9% 100 ML IVPB SCH (20:15)
[2020-02-08] MEDS ORDERED: levETIRAcetam IV 500 MG in SODIUM CHLORIDE 0.9% 100 ML IVPB SCH (21:00)
[2020-02-09 00:54] LABS: Glucose,Whole Blood 82 mg/dL (75-99)
[2020-02-09 05:15] LABS: Glucose,Whole Blood 89 mg/dL (75-99)
[2020-02-09] MEDS: PIPERACILLIN-TAZOBACTAM 3.375 GM in SODIUM CHLORIDE 0.9% 100 ML IVPB SCH ×2 (07:42→16:36)
[2020-02-09] MEDS: levETIRAcetam IV 750 MG in SODIUM CHLORIDE 0.9% 100 ML IVPB SCH (07:42)
[2020-02-09 08:28] LABS: Glucose,Whole Blood 77 mg/dL (75-99)
[2020-02-09 09:05] LABS: IgG Subclass 3 14.6 mg/dL (11.0-85.0)
--- NOTE | 2020-02-09 10:47 | P.PN ---
Subjective Progress Note Date: 02/09/20 The patient was seen at bedside and the per the patient nurse the patient continues to have altered mentation. No jerk in of any extremity is noted. I spoke with the patient's the caretakers via phone (Sherry [phone] and Enid [phone]) and they stated that the patient the does not have histor y of stroke over the right hemisphere. And they did tolerated the patient had hydrocephalus but did not know to what severity. The patient does follow up with Dr. Cho. They stated the patient has not had a seizure in the 6-7 years. Denies sure of the patient had the neurosurgical evaluation and one was the last neurosurgical about that he had that. 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 Objective - Vital Signs Vital signs: Vital Signs Temp 98.3 F 02/09/20 07:48 Pulse 76 02/09/20 08:00 Resp 16 02/09/20 08:00 BP 142/80 02/09/20 07:48 Pulse Ox 95 02/09/20 07:48 Intake & Output 02/08/20 02/09/20 02/09/20 18:59 06:59 18:59 Intake Total 0 Output Total 1000 2700 Balance -1000 -2700 Intake: Oral 0 Output: Urine 1000 2700 Uretheral (Martínez) 1700 Other: Voiding Method Indwelling Catheter Indwelling Catheter Indwelling Catheter - Exam GENERAL: The patient is lying in bed and does not seem in acute distress. NEUROLOGICAL: Higher mental function: The patient is somnolent and not opening eyes. He is non-verbal (baseline). With painful stimuli he will say "Ouch". Cranial nerves: I could not assess the pupil size since the patient was resistant to open his eyes. Could not assess visual mahan because of his resistant to open his eyes. Patient has right gaze nystagmus. Left facial droop. Otherwise could not assess rest of cranial nerves because of his condition. Motor: Gait is a is unable to obtain. The strength is is able to lift bilateral upper extremity above gravity right more than the left (seems baseline). As well as that he is able to lift the right lower extremity above gravity more than the left lower extremity. Patient had increased tone predominantly over left upper and lower extremity. He had minimal increased tone over the right upper and lower extremity mostly lower extremity. Cerebellum: Not assessed because his condition. Sensation: Not assessed because of his condition Reflexes (right/left): Patient had that 3+ over the left upper and lower extremities. While 2+ over the right side. Plantars are upgoing bilaterally. - Labs CBC & Chem 7: 02/09/20 10:24 02/07/20 07:01 Labs: Abnormal Lab Results - Last 24 Hours (Table) 02/08/20 02/08/20 02/08/20 Range/Units 08:12 10:44 10:44 HDL Cholesterol 109 H (40-60) mg/dL Amylase 373 H* (30-110) U/L Lipase 781 H (23-300) U/L IgG1 333.0 L (405.0-1011.0) mg/dL Assessment and Plan Assessment: This is a 64-year-old gentleman with medical history of cerebral palsy, epilepsy who presented from the [facility] on the 02/06/2020 for pancreatitis and possible aspiration pneumonia. Patient's altered mental status/lethargy is due to underlying infection from aspiration pneumonia and pancreatitis Severe hydrocephalus (predominately lateral ventrilces > 3rd ventricles) with no brain parenchyma of the right hemisphere History of Epilepsy (was told last seizure was 6-7 years ago) History of Cerebral palsy History of congenital hydrocephalus Aspiration pneumonia Acute Pancreatitis It seems the patient also has urinary tract infection Plan: * Patient is on the Trileptal 600 mg in the morning and 450 at night and that's his home dose for the seizure. Since he cannot swallow, Trileptal is held and continue Keppra 750mg 1 bid IV. Once his condition improves then restart home Trileptal and discontinue Keppra. * Routine EEG study (Pre-liminary report): The background slowing is suggestive of severe encephalopathy. There is asymmetric background where the right is worse than the left hemipsphere which is consistent with the patient history. There are no epileptiform discharges or seizure during the study. The artifact over leads FP2/F8 is likely ocular due to patient having right gaze nystagmus. * CT head (02/08/2020): Was reported as severe hydrocephalus. Right cerebral hemispheres severe cortical thinning. Pain unchanged compared to recent study of 02/06/2020. In the body of the report mentioned there is a widening of the subdural space over the right cerebral hemisphere with very little white sided brain parenchyma. The left cerebral hemisphere shows no acute abnormality. There is markedly enlarged left lateral ventricle. * I reviewed the CT of the head and I do agree there is a severe hydrocephalus throughout and there is no brain parenchyma over the right hemisphere. I spoke with the reading radiologist in the morning today and he stated that the right hemisphere brain atrophy and result no brain parenchyma is result of likely severe hydrocephalus and not stroke. And over the left temporal region there is a hydrocephalus. * The patient needs a neurosurgical evaluation and am not sure if he had one or not and how long ago. * Also for the possible urinary tract infection will defer the management to the primary team. * Upon discharge the patient is to follow up with an outpatient neurologist within 2 weeks (Dr. Cho). * I spoke with the patient's Public Guardian (Migel persaud) via phone and his caretakers via phone (Sherry [phone] and Enid [phone]) and they're all in agreement with the patient the pain transfer for neurosurgical evaluation. The caretakers would like to be informed prior to any surgical intervention. I think also the patient will benefit from transfer the case the patient needs long-term EEG if he continues to have altered mentation of from his baseline. The Plan was discussed with the patient's care takers, Guardian, primary care and patient's nurse. Prieto Peguero M.D. Neuro-hospitalist Time with Patient: Greater than 30
[2020-02-09 10:50] LABS: Anisocytosis Slight; HCT 42.2 % (39.0-53.0); HGB 13.6 gm/dL (13.0-17.5); Hypochromasia Moderate; MCH 30.2 pg (25.0-35.0); MCHC 32.3 g/dL (31.0-37.0); MCV 93.5 fL (80.0-100.0); Mean Platelet Volume 9.4; Platelet Count 155 k/uL (150-450); RBC 4.51 m/uL (4.30-5.90); RDW 16.9 % (11.5-15.5); WBC 15.9 k/uL (3.8-10.6)
[2020-02-09 10:55] LABS: Amylase 233 U/L (30-110); Lipase 532 U/L (23-300)
[2020-02-09 11:13] LABS: Glucose,Whole Blood 74 mg/dL (75-99)
[2020-02-09 12:31] LABS: Glucose,Whole Blood 79 mg/dL (75-99)
--- NOTE | 2020-02-09 13:14 | P.PN ---
Subjective Progress Note Date: 02/09/20 Principal diagnosis: Acute pancreatitis Right-sided aspiration pneumonia Advanced cerebral palsy History of epilepsy 02/09/2020, patient seen eval examined during the rounds labs reviewed medications reviewed care plan discussed, overall no significant change has been noted, neurology has been consulted they did a computed tomography scan of the head large hydrocephalus is noted, awaiting recommendations from the POA bout management of hydrocephalus 02/08/2020, patient seen and evaluated examined, mental status remains marginal, we'll consult neurology due to history of seizures and anti-seizure medications, patient is not ready for discharge abdominal pain however and the pancreatic enzyme continued to improve O follow closely 02/07/2020, patient seen eval examined during the rounds labs reviewed medications reviewed, respiratory status remains stable on supplemental oxygen saturation is 96%, patient remains afebrile, amylase lipase is noted to be down 899 and 466, GI consultation pending, she remains nothing by mouth, This is a 64-year-old male with a history of cerebral palsy, epilepsy who presents emergent department from [facility] for pancreatitis and possible aspiration pneumonia. Per the caregiver the patient has been not acting himself over the last couple of days. He's been moaning more and not eating. Patient has been been putting food into his mouth however not swallowing. He has not been drinking as well. Caregivers have noticed decreased urine output. There was concern that the patient may have urinary retention so they did place a Martínez at that time however has still noticed decreased urine output. They stated his baseline he typically will look at you and somewhat interact however over the last couple of days he has not been as interactive as normal. He is nonverbal at baseline. He went to [facility] where he had computed tomography scan of his head chest abdomen and pelvis. CT of the head showed right-sided en cephalomalacia from previous stroke which resulted in left-sided weakness. CT of the chest showed possible aspiration pneumonia no PE. The patient was started on Zosyn. CT the abdomen showed concerns for pancreatitis and findings of cholecystectomy. When I asked the caregiver about previous surgery she was not aware of cholecystectomy. Labs were Significant for an elevated lipase. Rapid Covid was negative at outside facility. Otherwise is been no fevers at home. No nausea or vomiting. The caregiver did notice an episode of diarrhea. The patient does not have a history of drinking or gallstones according to the caregiver. The patient is not getting any of his medications today as well. There is no other acute complaints. Objective - Vital Signs Vital signs: Vital Signs Temp 98.3 F 02/09/20 07:48 Pulse 76 02/09/20 08:00 Resp 16 02/09/20 08:00 BP 142/80 02/09/20 07:48 Pulse Ox 95 02/09/20 07:48 Intake & Output 02/08/20 02/09/20 02/09/20 18:59 06:59 18:59 Intake Total 0 Output Total 1000 2700 Balance -1000 -2700 Intake: Oral 0 Output: Urine 1000 2700 Uretheral (Martínez) 1700 Other: Voiding Method Indwelling Catheter Indwelling Catheter Indwelling Catheter - Exam - Constitutional General appearance: average body habitus, disheveled - EENT Ears: bilateral: normal - Neck Neck: normal ROM Carotids: bilateral: upstroke normal - Respiratory Respiratory: bilateral: diminished - Cardiovascular Rhythm: regular Heart sounds: normal: S1, S2 - Gastrointestinal General gastrointestinal: decreased bowel sounds - Neurologic Nonverbal and noncommunicative - Labs CBC & Chem 7: 02/09/20 10:24 02/07/20 07:01 Labs: Abnormal Lab Results - Last 24 Hours (Table) 02/08/20 02/08/20 02/09/20 Range/Units 08:12 10:44 10:24 WBC (3.8-10.6) k/uL RDW (11.5-15.5) % POC Glucose (mg/dL) (75-99) mg/dL Amylase 373 H* 233 H (30-110) U/L Lipase 781 H 532 H (23-300) U/L IgG1 333.0 L (405.0-1011.0) mg/dL 02/09/20 02/09/20 Range/Units 10:24 11:11 WBC 15.9 H (3.8-10.6) k/uL RDW 16.9 H (11.5-15.5) % POC Glucose (mg/dL) 74 L (75-99) mg/dL Amylase (30-110) U/L Lipase (23-300) U/L IgG1 (405.0-1011.0) mg/dL Assessment and Plan Assessment: Large hydrocephalus Altered mental status Seizure disorder Acute pancreatitis Right-sided aspiration pneumonia Advanced cerebral palsy History of epilepsy Plan: Will check with the POA about neurosurgery evaluation and transfer to tertiary care center Appreciated input from neurology We'll check with pharmacy about conversion of anti-seizure medicine Gentle rehydration Repeat labs tomorrow GI consult recommendation noted appreciated Patient cannot take his pills so will make him nothing by mouth for now IV Zosyn Time with Patient: Greater than 30
--- NOTE | 2020-02-09 14:04 | P.PN ---
Subjective Progress Note Date: 02/09/20 Principal diagnosis: Pancreatitis Mrs. 64-year-old white female with a history of cerebral palsy and epilepsy who was transferred from [facility] he presented with acute pancreatitis and possible aspiration pneumonia. He was seen and evaluated lying in bed. He remains very fatigued/drowsy with minimal response. His nurse states that he has been lethargic and slept all day yesterday, through the night and this morning. He was able to take a couple sips of apple juice yesterday, however did cough when he was drinking it according to the nurse. Not appear to be in any acute distress. Triglycerides 51, repeat amylase 233, lipase 532. Objective - Vital Signs Vital signs: Vital Signs Temp 98.3 F 02/09/20 07:48 Pulse 76 02/09/20 08:00 Resp 16 02/09/20 08:00 BP 142/80 02/09/20 07:48 Pulse Ox 95 02/09/20 07:48 Intake & Output 02/08/20 02/09/20 02/09/20 18:59 06:59 18:59 Intake Total 0 Output Total 1000 2700 Balance -1000 -2700 Intake: Oral 0 Output: Urine 1000 2700 Uretheral (Martínez) 1700 Other: Voiding Method Indwelling Catheter Indwelling Catheter Indwelling Catheter - Exam General appearance: The patient is lethargic, sleeping. Nonverbal, he appears to be in no acute distress. HET: Head is normocephalic and atraumatic. Conjunctiva pink. Sclera anicteric. Neck: Supple without lymphadenopathy. Abdomen: Soft, no tenderness, non distended. No guarding or rigidity. Extremities: Normal skin color and turgor. No pedal edema Neurological: He has history of cerebral palsy and epilepsy. He is mainly nonverbal. Sleeping , not arousable today. - Labs CBC & Chem 7: 02/09/20 10:24 02/07/20 07:01 Labs: Abnormal Lab Results - Last 24 Hours (Table) 02/08/20 02/08/20 02/08/20 Range/Units 08:12 10:44 10:44 HDL Cholesterol 109 H (40-60) mg/dL Amylase 373 H* (30-110) U/L Lipase 781 H (23-300) U/L IgG1 333.0 L (405.0-1011.0) mg/dL Assessment and Plan (1) Pancreatitis Narrative/Plan: This patient has a history of cerebral palsy and seizure disorder who was admitted to the hospital in [place] from his retirement with not feeling well with decreased appetite, and lap showing elevated lipase consistent with acute pancreatitis. CT of the abdomen and pelvis from [facility] showed changes in the pancreas consistent with acute pancreatitis. He's had normal serum transaminases which make it unlikely were dealing with a biliary pancreatitis. Etiology of pancreatitis at this time remains unclear. Has no prior history of alcohol use. Triglycerides and IgG4 ordered, glycerides 51, IgG4 normal. Current Visit: Yes Status: Acute Code(s): K85.90 - ACUTE PANCREATITIS WITHOUT NECROSIS OR INFECTION, UNSP SNOMED Code(s): 53940998 (2) Altered mental status Narrative/Plan: Altered mental status and the patient with a history of cerebral palsy, but baseline mental status this patient apparently is quite active and awake. He did undergo a CT of the head at [facility] that showed changes consistent with encephalomalacia and prior history of stroke. Neurology is following. Repeat brain computed tomography scan shows severe hydrocephalus. Right cerebral hemisphere severe cortical thinning. Brain unchanged compared to recent exam. Current Visit: Yes Status: Acute Code(s): R41.82 - ALTERED MENTAL STATUS, UNSPECIFIED SNOMED Code(s): 869190384 (3) Chronic constipation Current Visit: Yes Status: Acute Code(s): K59.09 - OTHER CONSTIPATION SNOMED Code(s): 516834667 (4) Cerebral palsy Current Visit: Yes Status: Acute Code(s): G80.9 - CEREBRAL PALSY, UNSPECIFIED SNOMED Code(s): 906771539 Plan: 1. Supportive care 2. Monitor lipase daily 3. Fasting serum triglyceride and IgG4 ordered and reviewed 4. Place nasogastric tube for tube feedings 5. Consult dietitian for tube feedings 6. Continue to follow recommendations per neurology We will follow with you closely Dr. Carolina Lovelace I agree with the dictator's note, documented as a scribe by Liliya Miller.
[2020-02-09 14:22] VITALS: BP 141/86; PULSE 72; RESP 18; TEMP 97.9
[2020-02-09 14:56] LABS: Glucose,Whole Blood 96 mg/dL (75-99)
--- NOTE | 2020-02-09 15:27 | EEG ---
ELECTROENCEPHALOGRAM REPORT DATE OF SERVICE: 02/09/2020 CLINICAL HISTORY: This is a 64-year-old gentleman with a reported history of congenital hydrocephalus, cerebral palsy that has altered mental status. The video EEG was obtained to evaluate for seizure and epileptiform activity. RELEVANT MEDICATION: The patient is currently on Keppra 750 mg 1 tablet b.i.d. EEG TYPE: A routine 21 channel EEG is performed with video using the 10/20 electrode placement system. DESCRIPTION: The awake state is only obtained. There is no posterior dominant rhythm over bilateral hemisphere. During awake state, there is a moderate voltage of 1.5-2.5 nonrhythmic delta slowing over the entire left hemisphere. There is a low voltage of 0.5-1 hertz non-rhythmic delta slowing over the right hemisphere. There is no physiological stage II sleep. There are frequent moderate sharp activity that is 1 to 2 hertz without following slowing over the FP2/F8 derivatives and without any evolution. Clinically, the patient has a right gaze nystagmus. INTERICTAL AND ICTAL: None. ACTIVATION PROCEDURE Photic stimulation is performed but no photic drive was seen over bilateral hemisphere. Hyperventilation is not performed. CLINICAL INTERPRETATION: This is an abnormal routine EEG. The background slowing is suggestive of severe encephalopathy. There is asymmetry of the background, where there is worsening slowing over the right hemisphere compared to the left, which is consistent with the patient's history as stated above. There are no epileptiform discharges or seizure seen during the study. There are artifacts over FP2/F8 derivatives which seems ocular artifact without evolution, and the patient was clinically having right gaze nystagmus. If the patient continues to be altered mental status, recommend long-term EEG. Clinical correlation is recommended. MMODL / IJN: [id number] / LEXUS
--- NOTE | 2020-02-09 16:19 | P.DS ---
Providers Date of admission: 02/06/20 13:34 Expected date of discharge: 02/09/20 Attending physician: Hector Chin Consults: 02/06/20 13:31 Consult Physician Routine Consulting Provider: Troy Horn Consult Reason/Comments: Pancreatitis Do you want consulting provider notified?: Yes 02/08/20 12:18 Consult Physician Routine Consulting Provider: Dacia Pearce Consult Reason/Comments: lethargy Do you want consulting provider notified?: Yes Primary care physician: [facility] Course: 02/09/2020, patient seen eval examined during the rounds labs reviewed medications reviewed care plan discussed, overall no significant change has been noted, neurology has been consulted they did a computed tomography scan of the head large hydrocephalus is noted, awaiting recommendations from the POA bout management of hydrocephalus, ramírez MELCHOR decided to proceed with this neurosurgery evaluation I have discussed with the neurosurgeon and to medicine team admitting the patient there've accepted the patient patient will be transferred when bed is available 02/08/2020, patient seen and evaluated examined, mental status remains marginal, we'll consult neurology due to history of seizures and anti-seizure medications, patient is not ready for discharge abdominal pain however and the pancreatic enzyme continued to improve O follow closely 02/07/2020, patient seen eval examined during the rounds labs reviewed medications reviewed, respiratory status remains stable on supplemental oxygen saturation is 96%, patient remains afebrile, amylase lipase is noted to be down 899 and 466, GI consultation pending, she remains nothing by mouth, This is a 64-year-old male with a history of cerebral palsy, epilepsy who presents emergent department from [place] for pancreatitis and possible aspiration pneumonia. Per the caregiver the patient has been not acting himself over the last couple of days. He's been moaning more and not eating. Patient has been been putting food into his mouth however not swallowing. He has not been drinking as well. Caregivers have noticed decreased urine output. There was concern that the patient may have urinary retention so they did place a Martínez at that time however has still noticed decreased urine output. They stated his baseline he typically will look at you and somewhat interact however over the last couple of days he has not been as interactive as normal. He is nonverbal at baseline. He went to [place] where he had computed tomography scan of his head chest abdomen and pelvis. CT of the head showed right-sided encephalomalacia from previous stroke which resulted in left-sided weakness. CT of the chest showed possible aspiration pneumonia no PE. The patient was started on Zosyn. CT the abdomen showed concerns for pancreatitis and findings of cholecystectomy. When I asked the caregiver about previous surgery she was not aware of cholecystectomy. Labs were Significant for an elevated lipase. Rapid Covid was negative at outside facility. Otherwise is been no fevers at home. No nausea or vomiting. The caregiver did notice an episode of diarrhea. The patient does not have a history of drinking or gallstones according to the caregiver. The patient is not getting any of his medications today as well. There is no other acute complaints. - Vital Signs Vital signs: Vital Signs Temp 98.3 F 02/09/20 07:48 Pulse 76 02/09/20 08:00 Resp 16 02/09/20 08:00 BP 142/80 02/09/20 07:48 Pulse Ox 95 02/09/20 07:48 Intake & Output 02/08/20 02/09/20 02/09/20 18:59 06:59 18:59 Intake Total 0 Output Total 1000 2700 Balance -1000 -2700 Intake: Oral 0 Output: Urine 1000 2700 Uretheral (Martínez) 1700 Other: Voiding Method Indwelling Catheter Indwelling Catheter Indwelling Catheter - Exam - Constitutional General appearance: average body habitus, disheveled - EENT Ears: bilateral: normal - Neck Neck: normal ROM Carotids: bilateral: upstroke normal - Respiratory Respiratory: bilateral: diminished - Cardiovascular Rhythm: regular Heart sounds: normal: S1, S2 - Gastrointestinal General gastrointestinal: decreased bowel sounds - Neurologic Nonverbal and noncommunicative CBC & Chem 7: 02/09/20 10:24 02/07/20 07:01 Labs: Abnormal Lab Results - Last 24 Hours (Table) 02/08/20 02/08/20 02/09/20 Range/Units 08:12 10:44 10:24 WBC (3.8-10.6) k/uL RDW (11.5-15.5) % POC Glucose (mg/dL) (75-99) mg/dL Amylase 373 H* 233 H (30-110) U/L Lipase 781 H 532 H (23-300) U/L IgG1 333.0 L (405.0-1011.0) mg/dL 12/23/20 12/23/20 Range/Units 10:24 11:11 WBC 15.9 H (3.8-10.6) k/uL RDW 16.9 H (11.5-15.5) % POC Glucose (mg/dL) 74 L (75-99) mg/dL Amylase (30-110) U/L Lipase (23-300) U/L IgG1 (405.0-1011.0) mg/dL Assessment: Large hydrocephalus Altered mental status Seizure disorder Acute pancreatitis Right-sided aspiration pneumonia Advanced cerebral palsy History of epilepsy Patient Condition at Discharge: Fair Plan - Discharge Summary Discharge Rx Participant: Yes New Discharge Prescriptions: Continue OXcarbazepine [Trileptal] 300 mg PO HS@2100 OXcarbazepine [Trileptal] 150 mg PO HS@2100 OXcarbazepine 600 mg PO DAILY@0700 Polyethylene Glycol 3350 [Miralax] 17 gm PO DAILY@1600 PRN PRN Reason: Constipation Multivitamins, Thera [Multivitamin (formulary)] 1 tab PO DAILY@0700 OLANZapine 20 mg PO HS@2100 LORazepam [Ativan] 0.5 mg PO DAILY PRN PRN Reason: aggitation Aspirin EC [Ecotrin] 325 mg PO DAILY@0700 Ketoconazole [Nizoral A-D] 5 ml TOPICAL DAILY Fenofibrate,Micronized [Fenofibrate] 67 mg PO DAILY@1600 FLUoxetine HCL [PROzac] 10 mg PO DAILY@0700 Finasteride [Proscar] 5 mg PO DAILY@0700 Chlorhexidine Gluconate [Periogard] 15 ml PO BID Tamsulosin HCl [Flomax] 0.4 mg PO DAILY@1600 No Action LORazepam [Ativan] 0.5 mg PO BID Discharge Medication List Aspirin EC [Ecotrin] 325 mg PO DAILY@0700 02/06/20 [History] Chlorhexidine Gluconate [Periogard] 15 ml PO BID 02/06/20 [History] FLUoxetine HCL [PROzac] 10 mg PO DAILY@0700 02/06/20 [History] Fenofibrate,Micronized [Fenofibrate] 67 mg PO DAILY@1600 02/06/20 [History] Finasteride [Proscar] 5 mg PO DAILY@0700 02/06/20 [History] Ketoconazole [Nizoral A-D] 5 ml TOPICAL DAILY 02/06/20 [History] LORazepam [Ativan] 0.5 mg PO BID 02/06/20 [History] LORazepam [Ativan] 0.5 mg PO DAILY PRN 02/06/20 [History] Multivitamins, Thera [Multivitamin (formulary)] 1 tab PO DAILY@0700 02/06/20 [History] OLANZapine 20 mg PO HS@2100 02/06/20 [History] OXcarbazepine 600 mg PO DAILY@0700 02/06/20 [History] OXcarbazepine [Trileptal] 150 mg PO HS@2100 02/06/20 [History] OXcarbazepine [Trileptal] 300 mg PO HS@209902/06/20 [History] Polyethylene Glycol 3350 [Miralax] 17 gm PO DAILY@1600 PRN 02/06/20 [History] Tamsulosin HCl [Flomax] 0.4 mg PO DAILY@1600 02/06/20 [History] Follow up Appointment(s)/Referral(s): Dirk Bales, CESAR [REFERRING] - 1 Week Activity/Diet/Wound Care/Special Instructions: [facility] transport on discharge. Please call #[phone]. Discharge Disposition: OTHER INSTITUTION NOT DEFINED
[2020-02-09 16:50] LABS: Glucose,Whole Blood 101 mg/dL (75-99)
--- NOTE | 2020-02-14 15:33 | CDI ---
Documentation Clarification Form Date: 02/14/20 From: Debra Sy Phone: If you have a question regarding this query, please contact Luh Abreu at [phone] between 8am and 5pm. Admit Date: 02/06/2020 01:34:00 PM Patient Name: Tereso Alvarez Visit Number: [id number] Discharge Date: 02/09/2020 05:13:00 PM ATTENTION: The Clinical Documentation Specialists (CDI) and [facility] Coding Staff appreciate your assistance in clarifying documentation. Please respond to the clarification below the line at the bottom and electronically sign. The CDI & [facility] Coding staff will review the response and follow-up if needed. Please note: Queries are made part of the Legal Health Record. If you have any questions, please contact the author of this message via ITS. Dr. Hector Chin Altered Mental Status was documented throughout the chart. Baseline mental status this patient apparently is quite active and awake is documented in Dr. Lovelace's notes. Patient's altered mental status/lethargy is due to underlying infection from aspiration pneumonia and pancreatitis is documented in the neurology notes. History/Risk Factors: Aspiration pneumonia, UTI, acute pancreatitis, cerebral palsy, epilepsy, cogenital hydrocephalus Clinical Indicators: Lethargy, altered mentation Labs: WBC 11.0, Hgb 12.5, Platelet 143, neutrophils 9.8, lymphocytes 0.4, lipase 5974, amylase 899, urine - protein 1+, blood moderate, leukocyte esterase moderate, RBC 174, WBC 47, bacteria rare, mucous occasional; IgG1 333.0, Covid negative CT: Brain - Severed hydrocephalus. Right cerebral hemisphere severe cortical thinning. EEG: Abnormal routine EEG. Background slowing is suggestive of severe encephalopathy. No epileptiform discharges or seizure seen during the study. Treatment: IV Zosyn, Neurology consult In your professional opinion, please clarify the etiology of the Altered Mental Status, if known. Delirium (specify cause): Dementia (if know, specify Type and if with/without Behavioral Disturbance) Encephalopathy (specify Type and Underlying Medical Illness) Other condition (please specify) Unable to determine MTDD
== END 2020-02-09 17:13 | disposition short-term general hospital (02) | DRG 438 ==
LOC: EC 12:54 → EEVIPCON 12:54 → SUPCPDRO 12:54 → 4SSUR 13:34
PROVIDERS: ADMIT Internal Medicine Sleep Medicine; ATTEND Internal Medicine Sleep Medicine
DX: K85.90 Acute pancreatitis without necrosis or infection, unspecified (principal); J69.0 Pneumonitis due to inhalation of food and vomit; I69.954 Hemiplegia and hemiparesis following unspecified cerebrovascular disease affecting left non-dominant side; N39.0 Urinary tract infection, site not specified; G80.9 Cerebral palsy, unspecified; R41.82 Altered mental status, unspecified; G93.89 Other specified disorders of brain; G40.909 Epilepsy, unspecified, not intractable, without status epilepticus; Q03.9 Congenital hydrocephalus, unspecified; E86.0 Dehydration; N42.9 Disorder of prostate, unspecified; R33.9 Retention of urine, unspecified; K59.09 Other constipation; Z79.82 Long term (current) use of aspirin; Z79.899 Other long term (current) drug therapy; Z87.440 Personal history of urinary (tract) infections; Z90.49 Acquired absence of other specified parts of digestive tract; Z87.19 Personal history of other diseases of the digestive system; Z91.09 Other allergy status, other than to drugs and biological substances
CPT/HCPCS: 36415; 70450; 71045; 76705; 80048; 80053; 80061; 81001; 82140; 82150; 82787; 83605; 83690; 83735; 85025; 85027; 87086; 95819; 99285